=== PATIENT | female | born 1990 | race Caucasian/White ===

== ENCOUNTER 2018-01-09 10:53 | Emergency (ER) | payer OTHER ==
[2018-01-09 10:57] VITALS: TEMP 98.3; BMI 30.7
--- NOTE | 2018-01-09 11:30 | PDOC ---
History of Present Illness - History of Present Illness Initial Comments: 01/09/18 12:22 Patient is a 27 F (, full term), who is currently 18 weeks , and presents to the ED with abdominal pain s/p trauma. Patient states that she hit her right lower abdomen on the stove this morning around 8:00 am. She states that she soon developed pain around her belly button, and is worried because she cant feel the baby move. Denies back pain or vaginal bleeding. ObGyn: Dr. Stallings PCP: Stephani Lehman <Karo Beck - Last Filed: 01/09/18 12:22> - General History Source: Patient Exam Limitations: No Limitations <Mata Ruffin - Last Filed: 01/09/18 13:56> - General Chief Complaint: Pain Stated Complaint: 18WKS, ABD PAIN Time Seen by Provider: 01/09/18 11:24 Past History <Karo Beck - Last Filed: 01/09/18 12:22> - Past Medical History Asthma: No Cancer: No Cardiac Disorders: No COPD: No Diabetes: No HTN: No Seizures: No Thyroid Disease: No - Suicide/Smoking/Psychosocial Hx Smoking Status: No Smoking History: Never smoked Have you smoked in the past 12 months: No Number of Cigarettes Smoked Daily: 0 Cigars Per Day: 0 Hx Alcohol Use: No Drug/Substance Use Hx: No Substance Use Type: None Hx Substance Use Treatment: No <Mata Ruffin - Last Filed: 01/09/18 13:56> - Past Medical History Allergies/Adverse Reactions: Allergies Allergy/AdvReac Type Severity Reaction Status Date / Time No Known Allergies Allergy Verified 01/09/18 10:57 Home Medications: Ambulatory Orders NK [No Known Home Medication] 05/19/16 Review of Systems - Review of Systems Comments:: GENERAL/CONSTITUTIONAL: No fever or chills. No weakness. HEAD, EYES, EARS, NOSE AND THROAT: No change in vision. No ear pain or discharge. No sore throat. CARDIOVASCULAR: No chest pain or shortness of breath. RESPIRATORY: No cough, wheezing, or hemoptysis. GASTROINTESTINAL: +abdominal pain. No nausea, vomiting, diarrhea or constipation. GENITOURINARY: No dysuria, frequency, or change in urination. MUSCULOSKELETAL: No joint or muscle swelling or pain. No neck or back pain. SKIN: No rash NEUROLOGIC: No headache, vertigo, loss of consciousness, or change in strength/ sensation. ENDOCRINE: No increased thirst. No abnormal weight change. HEMATOLOGIC/LYMPHATIC: No anemia, easy bleeding, or history of blood clots. ALLERGIC/IMMUNOLOGIC: No hives or skin allergy. 01/09/18 12:23 <Karo Beck - Last Filed: 01/09/18 12:22> *Physical Exam - Vital Signs Last Vital Signs Temp Pulse Resp BP Pulse Ox 98.3 F 82 18 121/67 99 01/09/18 10:55 01/09/18 10:55 01/09/18 10:55 01/09/18 10:55 01/09/18 10:55 - Physical Exam Comments: GENERAL: Awake, alert, and fully oriented, in no acute distress HEAD: No signs of trauma EYES: PERRLA, EOMI, sclera anicteric, conjunctiva clear ENT: Auricles normal inspection, hearing grossly normal, nares patent. Moist mucosa LUNGS: Breath sounds equal, clear to auscultation bilaterally. No wheezes, and no crackles HEART: Regular rate and rhythm, normal S1 and S2, no murmurs, rubs or gallops ABDOMEN: Soft, gravid, mildly tender in periumbilical area . No guarding, no rebound. No masses EXTREMITIES: Normal range of motion, no edema. No clubbing or cyanosis. No cords, erythema, or tenderness NEUROLOGICAL: Cranial nerves II through XII grossly intact. Normal speech, normal gait SKIN: Warm, Dry, normal turgor, no rashes or lesions noted. 01/09/18 12:24 <Karo Beck - Last Filed: 01/09/18 12:22> - Vital Signs Last Vital Signs Temp Pulse Resp BP Pulse Ox 98.3 F 82 18 121/67 99 01/09/18 10:55 01/09/18 10:55 01/09/18 10:55 01/09/18 10:55 01/09/18 10:55 <Mata Ruffin - Last Filed: 01/09/18 13:56> ED Treatment Course - RADIOLOGY Radiology Studies Ordered: Category Date Time Status US(SINGLE) [US] Stat Ultrasound 01/09/18 11:27 Ordered <Mata Ruffin - Last Filed: 01/09/18 13:56> Medical Decision Making - Medical Decision Making 01/09/18 11:29 A portion of this note was documented by scribe services under my direction. I have reviewed the details of the note, within reason, and agree with the documentation with the following case summary and management plan written by me. Patient treated in the ED. Nursing notes are reviewed and incorporated into the medical decision-making. Vital signs reviewed. Peripheral IV access obtained by the nurse, laboratory studies are drawn and sent, reviewed and interpreted by myself. Vital Signs Temp Pulse Resp BP Pulse Ox 98.3 F 82 18 121/67 99 01/09/18 10:55 01/09/18 10:55 01/09/18 10:55 01/09/18 10:55 01/09/18 10:55 27-year-old female patient with no past medical history, , approximately 18 weeks presents with abdominal discomfort. Patient actually bumped her abdomen into the side a stop. Started complaining about some discomfort but denies any vaginal bleeding. Patient was concerned that she felt that the baby may have not been moving any more so came to the ED. We'll obtain a pelvic ultrasound to evaluate the fetus. If the fetus is unremarkable, the patient is clear for discharge. 01/09/18 13:55 Ultrasound demonstrated single intrauterine gestation 19 weeks 0 days. heart rate 154 bpm. Pt feels reassurred and would like to go home. I discussed the physical exam findings, ancillary test results and final diagnoses with the patient. I answered all of the patient's questions. The patient was satisfied with the care received and felt comfortable with the discharge plan and treatment plan. The patient will call their primary care physician within 24 hours to arrange follow-up and will return to the Emergency Department with any new, persistant or worsening symptoms. <Mata Ruffin - Last Filed: 01/09/18 13:56> *DC/Admit/Observation/Transfer - Attestations Scribe Attestion: 01/09/18 12:25 Documentation prepared by Karo Beck, acting as front office medical assistant for Mata Ruffin MD. <Karo Beck - Last Filed: 01/09/18 12:22> - Discharge Dispostion Decision to Admit order: No <Mata Ruffin - Last Filed: 01/09/18 13:56> Diagnosis at time of Disposition: Qualifiers: Weeks of gestation: 19 weeks Qualified Code(s): Z3A.19 - 19 weeks gestation of - Discharge Dispostion Disposition: HOME Condition at time of disposition: Good - Referrals Referrals: Stephani Garcia MD [Primary Care Provider] - - Patient Instructions Additional Instructions: Your ultrasound of your fetus is normal. Please follow up with your registered radiologic technologist surgeon. - Post Discharge Activity
[2018-01-09 14:33] VITALS: BP 98/54; PULSE 70
== END 2018-01-09 14:33 | disposition home or self-care (01) ==
LOC: JER 10:53
DX: O26.892 Other specified pregnancy related conditions, second trimester (principal); S39.81XA Other specified injuries of abdomen, initial encounter; W22.8XXA Striking against or struck by other objects, initial encounter; Y93.89 Activity, other specified; Y92.030 Kitchen in apartment as the place of occurrence of the external cause; Y99.8 Other external cause status; Z3A.19 19 weeks gestation of pregnancy
CPT/HCPCS: 76801-TC; 76817-TC; 99282-25

== ENCOUNTER 2018-02-18 22:04 | Emergency (ER) | payer OTHER ==
[2018-02-18 22:07] VITALS: BMI 28.8
[2018-02-18] MEDS ORDERED: SODIUM CHLORIDE 1,000 ML IV STA (22:22)
[2018-02-18] MEDS ORDERED: ONDANSETRON 4 MG/2 ML VIAL IVPUSH ONE (22:22)
--- NOTE | 2018-02-18 22:24 | PDOC ---
Attending Attestation - Resident Resident Name: JoseshebaArnaldo - ED Attending Attestation I have performed the following: I have examined & evaluated the patient, The case was reviewed & discussed with the resident, I agree w/resident's findings & plan, Exceptions are as noted <Cséar Ansari - Last Filed: 02/18/18 22:24> - HPI HPI: 02/18/18 22:31 The patient is a 27 year old 26 weeks female , with a significant past medical history of, who presents to the emergency department with, 2 days of nausea, vomiting, weakness, and dizziness. As per patient, she has not been able to eat as much the past two days. She reports associated epigastric pain. She was able to keep down lasagna tonight. She denies recent fevers, chills, headache or dizziness. She denies recent diarrhea or constipation. She denies recent dysuria, frequency, urgency or hematuria. She denies recent chest pain or shortness of breath. Allergies: NKA Past surgical history: None reported. Social history: Nonsmoker. Denies EtOH use and recreational drug use. Primary Care Physician: Dr. Stephani EvansPhilip OBGYN: Dr. Stallings <[place] Bah - Last Filed: 02/18/18 22:32> Attestations - Attestations 02/18/18 22:31 Documentation prepared by [place] Bah, acting as medical assistant float for César Ansari DO. <[place] Bah - Last Filed: 02/18/18 22:32>
--- NOTE | 2018-02-18 22:38 | PDOC ---
History of Present Illness - General Chief Complaint: Nausea/Vomiting Stated Complaint: FATIGUE Time Seen by Provider: 02/18/18 22:10 History Source: Patient Exam Limitations: No Limitations - History of Present Illness Initial Comments: 02/18/18 22:32 Patient is a 27F at 26 weeks here today complaining of nausea, vomiting, weakness and dizziness for the past two days. The patient states that she has not been able to keep much down, especially for the past 24 hours. She started feeling weak and dizzy after the multiple episodes of vomiting. Patient endorses associated epigastric pain. Denies fevers, chills. Denies pain with urination. Past History - Past Medical History Allergies/Adverse Reactions: Allergies Allergy/AdvReac Type Severity Reaction Status Date / Time No Known Allergies Allergy Verified 02/18/18 22:07 Home Medications: Ambulatory Orders NK [No Known Home Medication] 05/19/16 Asthma: No Cancer: No Cardiac Disorders: No COPD: No Diabetes: No HTN: No Seizures: No Thyroid Disease: No - Suicide/Smoking/Psychosocial Hx Smoking Status: No Smoking History: Never smoked Have you smoked in the past 12 months: No Number of Cigarettes Smoked Daily: 0 Cigars Per Day: 0 Hx Alcohol Use: No Drug/Substance Use Hx: No Substance Use Type: None Hx Substance Use Treatment: No Review of Systems - Review of Systems Comments:: 02/18/18 22:38 GENERAL/CONSTITUTIONAL: No fever or chills. No weakness. HEAD, EYES, EARS, NOSE AND THROAT: No change in vision. No sore throat. CARDIOVASCULAR: No chest pain or shortness of breath RESPIRATORY: No cough, wheezing, or hemoptysis. GASTROINTESTINAL: +nausea, vomiting. Negative diarrhea or constipation. GENITOURINARY: No dysuria, frequency, or change in urination. MUSCULOSKELETAL: No joint or muscle swelling or pain. No neck or back pain. SKIN: No rash NEUROLOGIC: No headache, vertigo, loss of consciousness, or change in strength/ sensation. ENDOCRINE: No increased thirst. No abnormal weight change HEMATOLOGIC/LYMPHATIC: No anemia, easy bleeding, or history of blood clots. ALLERGIC/IMMUNOLOGIC: No hives or skin allergy. *Physical Exam - Vital Signs Last Vital Signs Temp Pulse Resp BP Pulse Ox 98.3 F 68 18 147/60 100 02/18/18 22:05 02/18/18 22:05 02/18/18 22:05 02/18/18 22:05 02/18/18 22:05 - Physical Exam Comments: 02/18/18 22:38 GENERAL: Awake, alert, and fully oriented, in no acute distress HEAD: No signs of trauma, normocephalic, atraumatic EYES: PERRLA, EOMI, sclera anicteric, conjunctiva clear ENT: Auricles normal inspection, hearing grossly normal, nares patent, oropharynx clear without exudates. Moist mucosa NECK: Normal ROM, supple, no lymphadenopathy, JVD, or masses LUNGS: No distress, speaks full sentences, clear to auscultation bilaterally HEART: Regular rate and rhythm, normal S1 and S2, no murmurs, rubs or gallops, peripheral pulses normal and equal bilaterally. ABDOMEN: Soft, nontender, normoactive bowel sounds. No guarding, no rebound. No masses EXTREMITIES: Normal inspection, Normal range of motion, no edema. No clubbing or cyanosis. NEUROLOGICAL: Cranial nerves II through XII grossly intact. Normal speech, normal gait, no focal sensorimotor deficits SKIN: Warm, Dry, normal turgor, no rashes or lesions noted. ED Treatment Course - LABORATORY CBC & Chemistry Diagram: 02/18/18 22:40 02/18/18 22:40 Medical Decision Making - Medical Decision Making 02/18/18 22:38 Patient is 27F here today with nausea, vomiting. Vital signs normal and stable. Normal abdominal exam other than gravid uterus. Will rule out metabolic derangements, UTI, pancreatitis, abnormal liver function. Will treat with fluids , zofran, pepcid. 02/18/18 23:52 Lipase mildly elevated. Will do RUQ, mostly to evaluate for gallstones. Patient reassessed, feeling better. Signed out to Dr Benites. *DC/Admit/Observation/Transfer Diagnosis at time of Disposition: Nausea & vomiting - Discharge Dispostion Condition at time of disposition: Stable - Referrals Referrals: Stephani Garcia MD [Primary Care Provider] - - Patient Instructions - Post Discharge Activity
[2018-02-18] MEDS ORDERED: FAMOTIDINE 20 MG/50 ML IVPB 20 MG/50 ML MG IVPB ONE ×2 (22:45→23:16)
[2018-02-18 23:05] LABS: BASO % 0.5 % (0-2.0); EOS % 0.1 % (0-4.5); HEMOGLOBIN 11.7 GM/dL (10.7-15.3); MCH 30.7 pg (25.7-33.7); MCHC 34.5 g/dl (32.0-36.0); MEAN PLT VOLUME 7.5 fl (7.5-11.1); MONO % 3.9 % (3.8-10.2); NEUT % 81.5 % (42.8-82.8); PLATELET COUNT 267 K/MM3 (134-434); RBC 3.82 M/mm3 (3.60-5.2); RDW 12.9 % (11.6-15.6); WHITE BLOOD COUNT 8.4 K/mm3 (4.0-10.0)
[2018-02-18] MEDS ORDERED: ONDANSETRON 4 MG/2 ML VIAL ONE (23:16)
[2018-02-18 23:44] LABS: ALBUMIN 3.4 g/dl (3.4-5.0); ANION GAP 9 (8-16); BLOOD UREA NITROGEN 10 mg/dL (7-18); CALCIUM 9.4 mg/dL (8.5-10.1); CHLORIDE 104 mmol/L (98-107); CO2 26 mmol/L (21-32); CREATININE 0.7 mg/dL (0.55-1.02); GLUCOSE,RANDOM 86 mg/dL (74-106); POTASSIUM 4.1 mmol/L (3.5-5.1); SGOT/AST 20 U/L (15-37); SGPT/ALT 21 U/L (12-78); SODIUM 139 mmol/L (136-145)
[2018-02-18 23:45] LABS: ALK PHOS 63 U/L (45-117); BILIRUBIN,TOTAL 0.3 mg/dL (0.2-1.0); LIPASE 589 U/L (73-393); TOT PROT 7.1 g/dl (6.4-8.2)
[2018-02-19 00:08] LABS: URINE APPEARANCE SLCLOUDY; URINE BILIRUBIN NEGATIVE (<2.0 mg/dL); URINE COLOR YELLOW; URINE GLUCOSE (UA) NEGATIVE (NEGATIVE); URINE KETONE TRACE (NEGATIVE); URINE LEUK ESTERASE NEGATIVE (NEGATIVE); URINE NITRITE NEGATIVE (NEGATIVE); URINE UROBILINOGEN NEGATIVE mg/dL (0.2-1.0)
[2018-02-19 00:42] LABS: URINE PROTEIN 1+ (NEGATIVE)
[2018-02-19 00:56] LABS: EPI CELLS MODERATE /HPF (FEW); URINE HYALINE CAST 2 /lpf; URINE MUCUS MANY
--- NOTE | 2018-02-19 01:40 | PDOC ---
*Physical Exam - Vital Signs Last Vital Signs Temp Pulse Resp BP Pulse Ox 98.3 F 68 18 147/60 100 02/18/18 22:05 02/18/18 22:05 02/18/18 22:05 02/18/18 22:05 02/18/18 22:05 ED Treatment Course - LABORATORY CBC & Chemistry Diagram: 02/18/18 22:40 02/18/18 22:40 - ADDITIONAL ORDERS Additional order review: Laboratory Results 02/18/18 02/18/18 23:55 22:40 Sodium 139 Potassium 4.1 Chloride 104 Carbon Dioxide 26 Anion Gap 9 BUN 10 Creatinine 0.7 Creat Clearance w eGFR > 60 Random Glucose 86 Calcium 9.4 Total Bilirubin 0.3 AST 20 ALT 21 Alkaline Phosphatase 63 Total Protein 7.1 Albumin 3.4 Lipase 589 H Urine Color Yellow Urine Appearance Slcloudy Urine pH 6.0 Ur Specific [place] 1.029 Urine Protein 1+ H Urine Glucose (UA) Negative Urine Ketones Trace H Urine Blood Negative Urine Nitrite Negative Urine Bilirubin Negative Urine Urobilinogen Negative Ur Leukocyte Esterase Negative Urine WBC (Auto) 2 Urine RBC (Auto) 1 Ur Epithelial Cells Moderate Hyaline Casts 2 Urine Mucus Many 02/18/18 22:40 RBC 3.82 MCV 89.0 MCHC 34.5 RDW 12.9 MPV 7.5 Neutrophils % 81.5 D Lymphocytes % 14.0 D Monocytes % 3.9 Eosinophils % 0.1 D Basophils % 0.5 - Medications Given in the ED: ED Medications Discontinued Medications Generic Name Dose Route Start Last Admin Trade Name Freq PRN Reason Stop Dose Admin Famotidine/Sodium Chloride 20 mg in 50 mls @ 100 mls/hr 02/18/18 22:45 23:30 Pepcid 20 Mg Premixed Ivpb - IVPB 02/18/18 23:14 100 mls/hr ONCE ONE Administration Sodium Chloride 1,000 mls @ 1,000 mls/hr 02/18/18 22:22 02/18/18 23:30 Normal Saline - IV 02/18/18 23:21 1,000 mls/hr ASDIR STA Administration Ondansetron HCl 4 mg 02/18/18 22:22 02/18/18 23:30 Zofran Injection IVPUSH 02/18/18 22:23 4 mg ONCE ONE Administration Medical Decision Making - Medical Decision Making 02/19/18 01:37 negative us. Will send to L&D *DC/Admit/Observation/Transfer Diagnosis at time of Disposition: Nausea & vomiting - Discharge Dispostion Condition at time of disposition: Stable Decision to Admit order: No - Referrals Referrals: Stephani Garcia MD [Primary Care Provider] - - Patient Instructions Printed Discharge Instructions: DI for Vomiting -- Adult Additional Instructions: Go to Labor and Delivery floor for continued supervision. Come back to the emergency department for any new, worsening or concerning symptoms. - Post Discharge Activity
[2018-02-19 03:09] VITALS: BP 100/60; PULSE 61; TEMP 98.7
== END 2018-02-19 02:35 | disposition home or self-care (01) ==
LOC: JER 22:04
PROC: 3E033GC Introduction of Other Therapeutic Substance into Peripheral Vein, Percutaneous Approach (ICD-10-PCS; principal; 2018-02-18)
PROC: 3E033GC Introduction of Other Therapeutic Substance into Peripheral Vein, Percutaneous Approach (ICD-10-PCS; 2018-02-18)
PROC: 3E0337Z Introduction of Electrolytic and Water Balance Substance into Peripheral Vein, Percutaneous Approach (ICD-10-PCS; 2018-02-18)
DX: O26.892 Other specified pregnancy related conditions, second trimester (principal); R11.2 Nausea with vomiting, unspecified; Z3A.26 26 weeks gestation of pregnancy
CPT/HCPCS: 36415; 76705-TC; 80053; 81003; 81015; 83690; 85025; 99282-25; J7030

== ENCOUNTER 2018-06-02 18:55 | Inpatient (IN) | payer OTHER ==
[2018-06-02] MEDS ORDERED: ELECTROLYTE-148 SOLN 500 ML IV ONE (23:30)
[2018-06-02] MEDS ORDERED: AMPICILLIN - 2 GM in SODIUM CHLORIDE 100 ML IVPB ONE (23:30)
[2018-06-03] MEDS ORDERED: ELECTROLYTE-148 SOLN 500 ML IV ONE
[2018-06-03 00:17] VITALS: BMI 31.6
[2018-06-03] MEDS ORDERED: AMPICILLIN SODIUM 2 GM VIAL ONE (00:29)
[2018-06-03 01:00] LABS: INR 0.9 (0.83-1.09); PROTHROMBIN TIME (PATIENT) 10.6 SEC (9.7-13.0)
[2018-06-03 01:03] LABS: ACTIVATED PTT 26.2 SECONDS (25.2-36.5)
[2018-06-03 01:07] LABS: ANION GAP 11 MMOL/L (8-16); BLOOD UREA NITROGEN 11 mg/dL (7-18); CALCIUM 8.7 mg/dL (8.5-10.1); CHLORIDE 105 mmol/L (98-107); CO2 23 mmol/L (21-32); CREATININE 0.8 mg/dL (0.55-1.3); GLUCOSE,RANDOM 88 mg/dL (74-106); POTASSIUM 3.9 mmol/L (3.5-5.1); SODIUM 139 mmol/L (136-145)
[2018-06-03] MEDS ORDERED: LIDOCAINE HCL 1% PRESERVATIVE FREE - 30ML VIAL ONE (01:35)
[2018-06-03] MEDS ORDERED: OXYTOCIN 20 UNITS in 0.9% NS 20 UNIT/1,000 ML INFUS.BAG IV ONE ×2 (01:37→04:11)
[2018-06-03] MEDS: OXYTOCIN 20 UNITS in 0.9% NS 20 UNIT/1,000 ML INFUS.BAG IV SCH ×2 (01:40→04:38)
[2018-06-03] MEDS ORDERED: BENZOCAINE 20% 57 GM BOTTLE TP PRN (01:41)
[2018-06-03] MEDS ORDERED: BENZOCAINE 28 GM HEMORRHOIDAL OINTMENT TP PRN (01:41)
[2018-06-03] MEDS ORDERED: WITCH HAZEL 50% (TUCKS) 40 PAD/JAR PAD TP PRN (01:41)
[2018-06-03] MEDS ORDERED: METHYLERGONOVINE MALEATE 0.2 MG/1 ML AMP IM PRN (01:41)
--- NOTE | 2018-06-03 01:51 | HP ---
Past Medical History - Admission Chief Complaint: Uterine contractions History of Present Illness: 27yo @ 38.5wks here with uterine contractions. No VB/LOF. 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: Alzheimer's, CVA, Dementia, Migraine, Multiple Sclerosis, Peripheral Neuropathy, Parkinson's, Seizure, Syncope, TIA, Vertigo, Other Cardiovascular: No: AFIB, Aneurysm, Aortic Insufficiency, Aortic Stenosis, CAD, CHF, Deep Vein Thrombosis, HTN, Hyperlipdemia, CA, Mitral Insufficiency, Mitral Stenosis, Murmur, Pulmonary Hypertension, Other Pulmonary: No: Asthma, Bronchitis, Cancer, COPD, O2 Dependent, Pneumonia, Previously Intubated, Pulmonary Embolus, Pulmonary Fibrosis, Sleep Apnea, Other Gastrointestinal: No: Ascites, Cancer, Constipation, Crohn's Disease, Diverticulitis, Diverticulosis, Esophageal Varices, Gastritis, GERD, GI Bleed, Hemorrhoids, Hiatal Hernia, Inflamatory Bowel Disease, Irritable Bowel Disease, Pancreatitis, Peptic Ulcer Disease, Ulcerative Colitis, Other Hepatobiliary: No: Cirrhosis, Cholelithiasis, Cholecystitis, Choledocholithiasis , Hepatitis A, Hepatitis B, Hepatitis C, Other Renal/: No: Renal Failure, Renal Inusuff, BPH, Cancer, Hematuria, Hemodialysis , Neurogenic Bladder, Renal Calculi, UTI, Other Reproductive: No: Ectopic , Endometriosis, Fibroids, PID, Polycystic Ovary Syndrome, Postmenopausal, Other ...: 3 ...Para: 1 ...Term: 1 ...: 0 ...Spon : 0 ...Induced : 1 ...Multiple Gestation: 0 ...LMP: 09/04/17 ... Weeks Gestation by Dates: 38.5 ...EDC by Dates: 06/11/18 ...EDC by Sono: 06/11/18 Heme/Onc: No: Anemia, B12 Deficiency, Bleeding Disorder, Cancer, Current Chemotherapy, Current Radiation Therapy, Hemochromatosis, Hypercoaguable State, Myeloproliferative Synd, Sickle Cell Disease, Sickle Cell Trait, Thrombocytopenia, Other Infectious Disease: No: AIDS, C-Diff, Herpes Zoster, HIV, MRSA, STD's, Tuberculosis, VREF, Other Psych: No: Addictions, Anxiety, Bipolar, Depression, Panic, Psychosis, Schizophrenia, Other Musculoskeletal: No: Bursitis, Chronic low back pain, Hemiparesis, Hemiplegia, Osteoarthritis, Paraplegia, Other Rheumatology: No: Fibromyalgia, Gout, Lupus, Rheumatoid Arthritis, Sarcoidosis, Vasculitis, Other ENT: No: Allergic Rhinitis, Sinusitis, Other Endocrine: No: Cottle's Disease, [place]'s Disease, Diabetes Insipidus, Diabetes Mellitus, Hyperparathyroidism, Hyperthyroidism, Hypothyroidism, Osteopenia, SIADH, Other Dermatology: No: Basal Cell, Cellulitis, Eczema, Melanoma, Psoriasis, Squamous Cell, Other - Past Surgical History Hx Myomectomy: No Hx Transabdominal Cerclage: No - Smoking History Smoking history: Never smoked Have you smoked in the past 12 months: No Aproximately how many cigarettes per day: 0 - Alcohol/Substance Use Hx Alcohol Use: No - Social History History of Recent Travel: No Home Medications - Allergies Allergies/Adverse Reactions: Allergies Allergy/AdvReac Type Severity Reaction Status Date / Time No Known Allergies Allergy Verified 06/02/18 21:21 - Home Medications Home Medications: Ambulatory Orders NK [No Known Home Medication] 05/19/16 Physical Exam - Maternity Vital Signs: Vital Signs Temperature 98.7 F 06/02/18 23:30 Pulse Rate 69 06/03/18 01:00 Respiratory Rate 20 06/03/18 01:00 Blood Pressure 128/65 06/03/18 01:00 O2 Sat by Pulse Oximetry (%) Constitutional: Yes: Well Nourished, No Distress, Calm Eyes: Yes: WNL, Conjunctiva Clear, EOM Intact HENT: Yes: WNL, Atraumatic, Normocephalic Neck: Yes: WNL, Supple, Trachea Midline Cardiovascular: Yes: WNL, Regular Rate and Rhythm Breast(s): Yes: WNL - Abdominal Exam/OB Number of Fetuses: Single Presentation: Vertex Contractions: Yes Regularity: Regular Intensity: Mod/Strong Category: I Accelerations: Uniform Decelerations: None - Vaginal Exam/OB Vaginal Bleediing: No Dilatation (cm): 6 Effacement (%): 100 Amniotic Membrane Status: Intact Station: 0 - Labs Lab Results: CBC, BMP 06/03/18 00:25 Assessment/Plan 27yo @ 38.5wks here in labor Admit to L&D yaos, IVFs Epidural prn Cat I tracing Anticipate JORGE Elizabeth MD
--- NOTE | 2018-06-03 01:52 | PN ---
Delivery - Delivery Type of Anesthesia: None Episiotomy/Laceration: None EBL (cc): 300 Delivery, Single - Stages of Labor Date of Delivery: 06/03/18 Date Placenta Delivered: 06/03/18 Placenta: Yes: Spontaneous - Condition of Infant Clinical Trial Manager/Insurance Loss Assessor Present: No Gender: Male Position: Left, OA - Feeding Plan Initial Plan: Elected not to breastfeed exclusively throughout hospitalization Remarks - Remarks Remarks: of VMI over intact perineum. No nuchal. No meconium. No anesthesia. Spontaneous delivery of anterior shoulder. Cord clamped and cut after 2 minutes. Apgars 9/9. Weight pending. Spontaneous delivery of intact placenta with 3VC. Fundus firm. Perineum inspected, no lacerations. Mother and baby doing well. EBL 300. Mother and baby doing well. Holli Elizabeth MD
[2018-06-03 02:00] LABS: BASO % 0.3 % (0-2.0); EOS % 0.1 % (0-4.5); HEMOGLOBIN 11.5 GM/dL (10.7-15.3); LYMPH % 8.6 % (8-40); MCH 29.9 pg (25.7-33.7); MCHC 33.8 g/dl (32.0-36.0); MEAN CELL VOLUME 88.6 fl (80-96); MEAN PLT VOLUME 8.5 fl (7.5-11.1); MONO % 3.3 % (3.8-10.2); NEUT % 87.7 % (42.8-82.8); PLATELET COUNT 212 K/MM3 (134-434); RBC 3.84 M/mm3 (3.60-5.2); WHITE BLOOD COUNT 11.2 K/mm3 (4.0-10.0)
[2018-06-03] MEDS ORDERED: oxyCODONE HCL 5 MG TABLET PO PRN (02:12)
[2018-06-03] MEDS ORDERED: AMPICILLIN - 1 GM in SODIUM CHLORIDE 100 ML IVPB SCH (03:30)
[2018-06-03] MEDS: IBUPROFEN 600 MG TABLET (FP) PO PRN ×3 (04:38→17:56)
[2018-06-03] MEDS ORDERED: TUBERCULIN PPD 5 TU/0.1ML SYRINGE (IN PATIENT USE ONLY) ID ONE (06:00)
[2018-06-03] MEDS: ACETAMINOPHEN 325 MG TABLET (FP) PO PRN ×2 (06:53→17:57)
[2018-06-03] MEDS: PRENATAL VITAMINS W/ FOLIC ACID TABLET (FP) PO SCH (09:08)
[2018-06-04] MEDS: ACETAMINOPHEN 325 MG TABLET (FP) PO PRN ×4 (00:14→21:49)
[2018-06-04] MEDS: IBUPROFEN 600 MG TABLET (FP) PO PRN ×4 (00:15→21:49)
--- NOTE | 2018-06-04 04:34 | PN ---
Progress Note (short form) - Note Progress Note: ppd 1 doing well, no c/o , voids ok , no excess vaginal bleeding CBC, BMP 06/03/18 01:45 06/03/18 00:25 Last Vital Signs Temp Pulse Resp BP Pulse Ox 98.7 F 69 18 111/70 06/03/18 21:22 06/03/18 21:22 06/03/18 21:22 06/03/18 21:22 abdomen soft, uterus firm, non tender lochia mild, no calf tenderness plan ambulate. cbc plan for d/c home in am
[2018-06-04 07:45] LABS: BASO % 0.3 % (0-2.0); EOS % 0.4 % (0-4.5); HEMATOCRIT 28.5 % (32.4-45.2); HEMOGLOBIN 9.6 GM/dL (10.7-15.3); LYMPH % 26.2 % (8-40); MCH 29.7 pg (25.7-33.7); MCHC 33.6 g/dl (32.0-36.0); MEAN CELL VOLUME 88.5 fl (80-96); MEAN PLT VOLUME 8.4 fl (7.5-11.1); NEUT % 66.1 % (42.8-82.8); PLATELET COUNT 170 K/MM3 (134-434); RBC 3.22 M/mm3 (3.60-5.2); RDW 13.3 % (11.6-15.6); WHITE BLOOD COUNT 7.4 K/mm3 (4.0-10.0)
[2018-06-04] MEDS: PRENATAL VITAMINS W/ FOLIC ACID TABLET (FP) PO SCH (10:20)
[2018-06-04] MEDS ORDERED: SENNOSIDES/DOCUSATE COMBO (SENNA PLUS) TABLET (UD) PO PRN (22:00)
--- NOTE | 2018-06-05 00:12 | DS ---
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 Vital Signs: Vital Signs Temperature 98.2 F 06/04/18 21:00 Pulse Rate 78 06/04/18 21:00 Respiratory Rate 20 06/04/18 21:00 Blood Pressure 123/67 06/04/18 21:00 O2 Sat by Pulse Oximetry (%) Constitutional: Yes: Well Nourished, No Distress, Calm Eyes: Yes: WNL, Conjunctiva Clear, EOM Intact HENT: Yes: WNL, Atraumatic, Normocephalic Neck: Yes: WNL, Supple, Trachea Midline Cardiovascular: Yes: WNL, Regular Rate and Rhythm Respiratory: Yes: WNL, Regular, CTA Bilaterally Gastrointestinal: Yes: WNL ...Rectal Exam: Yes: WNL Renal/: Yes: WNL ....Post : Yes: Uterus firm, Uterus non-tender, Slight lochia rubra Breast(s): Yes: WNL Musculoskeletal: Yes: WNL Extremities: Yes: WNL Edema: No Integumentary: Yes: WNL Neurological: Yes: WNL, Alert, Oriented ...Motor Strength: WNL Psychiatric: Yes: WNL, Alert, Oriented Labs: CBC, BMP 06/04/18 06:00 06/03/18 00:25 Delivery - Delivery Vaginal Delivery: Spontaneous Type of Anesthesia: None Episiotomy/Laceration: None EBL (cc): 300 Delivery, Single - Stages of Labor Date 1st Stage Initiatied: 06/02/18 Time 1st Stage Initiated: 18:00 Date 2nd Stage Initiated: 06/03/18 Time 2nd Stage Initiated: 01:20 Date of Delivery: 06/03/18 Time of Delivery: 01:31 Time Placenta Delivered: 01:40 Placenta: Yes: Spontaneous - Condition of Infant 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: No Gender: Male Weight: 6 lb 6 oz Position: Left, OA Total Hours ROM (Hrs/Mins): 25M - 1 Minute Total Score: 9 5 Minutes Total Score: 9 - [place] Feeding Plan Initial Plan: Elected not to breastfeed exclusively throughout hospitalization Discharge Summary Reason For Visit: ADMIT PAHENT Procedures: Principal: Hospital Course: no complication Condition: Good - Instructions Diet, Activity, Other Instructions: regular diet, no intercourse, if fever, heavy vaginal bleeding call , follow up [facility] 4 weeks Referrals: [facility] [Provider Group] Disposition: HOME - Home Medications Comprehensive Discharge Medication List: Ambulatory Orders Ibuprofen [Motrin -] 600 mg PO TID #21 tablet 06/05/18
[2018-06-05] MEDS: PRENATAL VITAMINS W/ FOLIC ACID TABLET (FP) PO SCH (11:02)
[2018-06-05 11:11] VITALS: BP 111/72; PULSE 92; TEMP 99
== END 2018-06-05 13:40 | disposition home or self-care (01) | DRG 560 ==
LOC: JDEL 18:55 → JLDR 23:30 → J3W 06-03 04:13
PROVIDERS: ADMIT Obstetrics & Gynecology; ATTEND Obstetrics & Gynecology
PROC: 10E0XZZ Delivery of Products of Conception, External Approach (ICD-10-PCS; principal; 2018-06-03)
DX: O80 Encounter for full-term uncomplicated delivery (principal); Z3A.39 39 weeks gestation of pregnancy; Z37.0 Single live birth
CPT/HCPCS: 36415; 59025; 59409; 80048; 85025; 85610; 85730; 86593; 86850; 86900; 86901; 87389

== ENCOUNTER 2021-08-07 15:47 | Emergency (ER) | payer OTHER ==
[2021-08-07 16:01] VITALS: BP 125/72; PULSE 78; TEMP 98; BMI 29.2
[2021-08-07 18:38] LABS: CALCIUM 9.5 mg/dL (8.5-10.1)
[2021-08-07 18:39] LABS: BLOOD UREA NITROGEN 13.7 mg/dL (7-18)
[2021-08-07 18:42] LABS: CREATININE 0.8 mg/dL (0.55-1.3)
[2021-08-07 18:43] LABS: BASO % 0.2 % (0-2.0); EOS % 0.5 % (0-4.5); HEMATOCRIT 36.3 % (32.4-45.2); HEMOGLOBIN 12.3 GM/dL (10.7-15.3); LYMPH % 27.4 % (8-40); MCH 29.6 pg (25.7-33.7); MCHC 33.9 g/dl (32.0-36.0); MEAN CELL VOLUME 87.5 fl (80-96); MEAN PLT VOLUME 7.2 fl (7.5-11.1); MONO % 6.6 % (3.8-10.2); NEUT % 65.3 % (42.8-82.8); PLATELET COUNT 326 10^3/uL (134-434); RBC 4.15 M/mm3 (3.60-5.2); RDW 12.4 % (11.6-15.6); WHITE BLOOD COUNT 6.5 K/mm3 (4.0-10.0)
[2021-08-07 18:43] LABS: BILIRUBIN,TOTAL 0.3 mg/dL (0.2-1); TOT PROT 7.5 g/dl (6.4-8.2)
== END 2021-08-07 19:42 | disposition home or self-care (01) ==
LOC: JER 15:47
DX: O20.0 Threatened abortion (principal)
CPT/HCPCS: 36415; 76817-TC; 80053; 84702; 85025; 99284-25

== ENCOUNTER 2021-08-13 18:42 | Emergency (ER) | payer OTHER ==
[2021-08-13 18:51] VITALS: BP 143/71; PULSE 78; TEMP 97.8; BMI 29.2
[2021-08-13] MEDS ORDERED: METHOTREXATE SODIUM/PF 25 MG/ML VIAL IM ONE (22:31)
== END 2021-08-13 23:14 | disposition home or self-care (01) ==
LOC: JER 18:42
PROC: 3E0233Z Introduction of Anti-inflammatory into Muscle, Percutaneous Approach (ICD-10-PCS; principal; 2021-08-13)
DX: O00.90 Unspecified ectopic pregnancy without intrauterine pregnancy (principal)
CPT/HCPCS: 36415; 76817-TC; 84702; 87661; 99284-25; J9260

== ENCOUNTER 2021-08-26 21:25 | Emergency (ER) | payer OTHER ==
[2021-08-26 21:37] VITALS: BMI 29.2
[2021-08-26] MEDS ORDERED: ACETAMINOPHEN 1000 MG/100 ML BAG IVPB ONE (23:25)
[2021-08-26] MEDS ORDERED: ACETAMINOPHEN INJECTION 100 ML IVPB ONE (23:32)
[2021-08-27 00:55] LABS: BASO % 0.1 % (0-2.0); HEMATOCRIT 34.9 % (32.4-45.2); LYMPH % 25.2 % (8-40); MCH 30.3 pg (25.7-33.7); MCHC 34.5 g/dl (32.0-36.0); MEAN CELL VOLUME 87.9 fl (80-96); MEAN PLT VOLUME 6.9 fl (7.5-11.1); NEUT % 68.7 % (42.8-82.8); PLATELET COUNT 349 10^3/uL (134-434); RBC 3.97 M/mm3 (3.60-5.2); RDW 12.9 % (11.6-15.6); WHITE BLOOD COUNT 6.5 K/mm3 (4.0-10.0)
[2021-08-27 01:01] LABS: EPI CELLS >36 /uL (0-25.1); HYALINE CASTS 5 /uL (0-3.1); URINE APPEARANCE CLOUDY; URINE BACTERIA 685 /uL (0-1359); URINE BILIRUBIN NEGATIVE (NEGATIVE); URINE COLOR YELLOW; URINE GLUCOSE (UA) NEGATIVE (NEGATIVE); URINE KETONE TRACE (NEGATIVE); URINE LEUK ESTERASE NEGATIVE (NEGATIVE); URINE NITRITE NEGATIVE (NEGATIVE); URINE PROTEIN 1+ (NEGATIVE); URINE RBC 633 /uL (0-23.9); URINE WBC 17 /uL (0-25.8)
[2021-08-27 01:11] LABS: CALCIUM 9.2 mg/dL (8.5-10.1)
[2021-08-27 01:12] LABS: BLOOD UREA NITROGEN 17.9 mg/dL (7-18)
[2021-08-27 01:15] LABS: CREATININE 0.9 mg/dL (0.55-1.3)
[2021-08-27 01:16] LABS: BILIRUBIN,TOTAL 0.2 mg/dL (0.2-1)
[2021-08-27 01:17] LABS: TOT PROT 7.5 g/dl (6.4-8.2)
[2021-08-27] MEDS ORDERED: ACETAMINOPHEN 500 MG TABLET (FP) PO ONE (08:35)
[2021-08-27 08:46] VITALS: BP 116/77; PULSE 72; TEMP 97.1
[2021-08-27] MEDS ORDERED: ACETAMINOPHEN 325 MG TABLET (FP) ONE (08:47)
== END 2021-08-27 09:04 | disposition home or self-care (01) ==
LOC: JER 21:25
PROC: 3E0333Z Introduction of Anti-inflammatory into Peripheral Vein, Percutaneous Approach (ICD-10-PCS; principal; 2021-08-26)
DX: O00.90 Unspecified ectopic pregnancy without intrauterine pregnancy (principal)
CPT/HCPCS: 36415; 76817-TC; 80053; 81003; 84702; 85025; 86850; 86900; 86901; 87086; 87491; 87591; 96374; 99284-25; C9803; J0131; U0003; U0005

== ENCOUNTER 2023-03-04 18:06 | Emergency (ER) | payer OTHER ==
[2023-03-04 18:21] VITALS: BP 151/72; PULSE 77; RESP 18; TEMP 98; BMI 27.4
[2023-03-04 21:02] LABS: BASO % 0.4 % (0-2.0); EOS % 0.6 % (0-4.5); HEMATOCRIT 37.7 % (32.4-45.2); HEMOGLOBIN 12.9 GM/dL (10.7-15.3); LYMPH % 26.8 % (8-40); MCH 29.3 pg (25.7-33.7); MCHC 34.2 g/dl (32.0-36.0); MEAN CELL VOLUME 85.7 fl (80-96); MEAN PLT VOLUME 7.4 fl (7.5-11.1); MONO % 4.8 % (3.8-10.2); NEUT % 67.4 % (42.8-82.8); PLATELET COUNT 301 10^3/uL (134-434); RDW 12.6 % (11.6-15.6); WHITE BLOOD COUNT 6.2 K/mm3 (4.0-10.0)
[2023-03-04 21:14] LABS: CHLORIDE 106 mmol/L (98-107); POTASSIUM 3.9 mmol/L (3.5-5.1); SODIUM 139 mmol/L (136-145)
[2023-03-04 21:16] LABS: ALBUMIN 3.8 g/dl (3.4-5.0); ANION GAP 7 MMOL/L (8-16); CO2 26 mmol/L (21-32); GLUCOSE,RANDOM 85 mg/dL (74-106)
[2023-03-04 21:19] LABS: SGPT/ALT 64 U/L (13-61)
[2023-03-04 21:20] LABS: SGOT/AST 35 U/L (15-37)
[2023-03-04 21:21] LABS: BILIRUBIN,TOTAL 0.6 mg/dL (0.2-1); TOT PROT 7.4 g/dl (6.4-8.2)
[2023-03-04 21:22] LABS: ALK PHOS 53 U/L (45-117)
[2023-03-04 21:49] LABS: EPI CELLS >36 /uL (0-25.1); HYALINE CASTS 2 /uL (0-3.1); PH,URINE 5.5 (5.0-8.0); URINE APPEARANCE CLOUDY; URINE BACTERIA 1030 /uL (0-1359); URINE BILIRUBIN NEGATIVE (NEGATIVE); URINE COLOR ORANGE; URINE GLUCOSE (UA) NEGATIVE (NEGATIVE); URINE KETONE 3+ (NEGATIVE); URINE LEUK ESTERASE TRACE (NEGATIVE); URINE NITRITE NEGATIVE (NEGATIVE); URINE PROTEIN 2+ (NEGATIVE); URINE RBC 2696 /uL (0-23.9); URINE WBC 40 /uL (0-25.8)
== END 2023-03-04 23:00 | disposition home or self-care (01) ==
LOC: JER 18:06
DX: R10.30 Lower abdominal pain, unspecified (principal); N93.9 Abnormal uterine and vaginal bleeding, unspecified
CPT/HCPCS: 36415; 80053; 81003; 84702; 84703; 85025; 86850; 86900; 86901; 87086; 99283-25

== ENCOUNTER 2023-09-09 17:33 | Emergency (ER) | payer OTHER ==
[2023-09-09 18:09] VITALS: BP 143/91; PULSE 78; RESP 16; TEMP 97.7; BMI 26.1
[2023-09-09 18:32] LABS: EPI CELLS >36 /uL (0-25.1); HYALINE CASTS 2 /uL (0-3.1); PH,URINE 6.5 (5.0-8.0); URINE APPEARANCE CLOUDY; URINE BACTERIA 905 /uL (0-1359); URINE BILIRUBIN NEGATIVE (NEGATIVE); URINE COLOR YELLOW; URINE GLUCOSE (UA) NEGATIVE (NEGATIVE); URINE KETONE NEGATIVE (NEGATIVE); URINE LEUK ESTERASE NEGATIVE (NEGATIVE); URINE NITRITE NEGATIVE (NEGATIVE); URINE PROTEIN 1+ (NEGATIVE); URINE RBC 316 /uL (0-23.9)
[2023-09-09 18:33] LABS: HCG,QUALITATIVE URINE Negative
[2023-09-09] MEDS ORDERED: ONDANSETRON *ODT* 4 MG TABLET SL ONE (20:04)
[2023-09-09] MEDS ORDERED: CEPHALEXIN MONOHYDRATE 500 MG CAPSULE (UD) ONE (20:29)
[2023-09-09] MEDS ORDERED: metroNIDAZOLE 250 MG TABLET ONE (20:29)
[2023-09-09] MEDS: CEPHALEXIN MONOHYDRATE 500 MG CAPSULE (UD) PO ONE (20:34)
[2023-09-09] MEDS: metroNIDAZOLE 250 MG TABLET PO ONE (20:34)
[2023-09-09 22:59] LABS: URINE WBC 67.9 /uL (0-25.8)
== END 2023-09-09 20:34 | disposition home or self-care (01) ==
LOC: JER 17:33
DX: N30.01 Acute cystitis with hematuria (principal); N76.0 Acute vaginitis; B96.89 Other specified bacterial agents as the cause of diseases classified elsewhere; R35.0 Frequency of micturition; R10.30 Lower abdominal pain, unspecified
CPT/HCPCS: 81003; 84703; 87086; 87186; 99283-25

== ENCOUNTER 2024-01-07 14:27 | Emergency (ER) | payer OTHER ==
[2024-01-07 14:32] VITALS: TEMP 98.2; BMI 26.9
[2024-01-07] MEDS ORDERED: methylPREDNISolone NA SUCC 125 MG/2 ML VIAL ONE (15:09)
[2024-01-07] MEDS: methylPREDNISolone NA SUCC 125 MG/2 ML VIAL IM ONE (15:21)
[2024-01-07 16:33] VITALS: BP 137/86; PULSE 67; RESP 13
== END 2024-01-07 16:33 | disposition home or self-care (01) ==
LOC: JERFT 14:27
PROC: 3E023GC Introduction of Other Therapeutic Substance into Muscle, Percutaneous Approach (ICD-10-PCS; principal; 2024-01-07)
PROC: 3E023GC Introduction of Other Therapeutic Substance into Muscle, Percutaneous Approach (ICD-10-PCS; 2024-01-07)
DX: T63.441A Toxic effect of venom of bees, accidental (unintentional), initial encounter (principal); R07.89 Other chest pain; R42 Dizziness and giddiness; Z91.030 Bee allergy status
CPT/HCPCS: 99284-25